=== PATIENT | male | born 1995 | race Caucasian/White ===

== ENCOUNTER 2017-02-27 01:40 | Emergency (ER) | payer OTHER ==
--- NOTE | 2017-03-01 01:36 | ER ---
ADMIT: 02/27/2017 RM/LOC: ER [facility] MR#: [id number] [id number] [place] [place] [address] Emergency Room Report SEX: M AGE: 21 : 1995 DATE: 02/27/2017 CHIEF COMPLAINT: Med clearance for alcohol intoxication. HISTORY OF PRESENT ILLNESS: The patient is a 21-year-old male comes in by [facility] for med clearance to go to penitentiary. They arrested the patient for DUI and he blew above a 0.25, so they brought him in for evaluation. REVIEW OF SYSTEMS: The patient denies any pain, is not having difficulty breathing, nausea, vomiting, or numbness, tingling, or weakness in any extremity. PAST MEDICAL HISTORY: Negative. MEDICATIONS: None. ALLERGIES: NONE. DID HAVE A SHOULDER SURGERY IN THE PAST. SOCIAL HISTORY: Smokes quarter pack a day and admits to drinking alcohol several times a week and had heavy alcohol consumption tonight. PHYSICAL EXAMINATION: GENERAL: The patient is alert, oriented, in no distress. HEENT: Head is atraumatic. HEART: Regular rate and rhythm. LUNGS: Clear to auscultation. SKIN: Warm and dry. MEDICAL DECISION MAKING: Based on the patient's physical exam, his history, and lack of any complaints with normal vital signs, I have determined he was stable to go to penitentiary. He is discharged in stable condition in custody of the [place] [employer] with a diagnosis of alcohol intoxication. Tay Colón MD/ richard JOB #: [id number] CC: Tay Colón MD, Attending Physician
== END 2017-02-27 01:50 ==
LOC: ER 01:40
DX: F10.129 Alcohol abuse with intoxication, unspecified (principal); F17.210 Nicotine dependence, cigarettes, uncomplicated; Z02.89 Encounter for other administrative examinations